=== PATIENT | male | born 1965 | race Caucasian/White ===

== ENCOUNTER 2017-02-09 07:26 | Emergency (ER) | payer MEDICARE, MEDICAID ==
[~2017-02-09] VITALS: Ht 182.9 cm; Wt 104.8 kg
[~2017-02-09 07:26] MED LIST: DIAZ2TAB PO; GABA-341 PO; OXYC20TA55 PO; PAM25C PO
[2017-02-09] MEDS ORDERED: CLIN-79 PO (08:03)
[2017-02-09] MEDS ORDERED: HYDR-3965 PO (08:03)
[2017-02-09 08:10] VITALS: BP 157/90
== END 2017-02-09 08:11 | disposition home or self-care (01) ==
LOC: ER 07:27
DX: K08.89 Other specified disorders of teeth and supporting structures (principal); J45.909 Unspecified asthma, uncomplicated; G89.29 Other chronic pain; F17.200 Nicotine dependence, unspecified, uncomplicated; Z88.0 Allergy status to penicillin; Z88.2 Allergy status to sulfonamides
CPT/HCPCS: 99283

== ENCOUNTER 2017-02-23 16:56 | Emergency (ER) | payer MEDICARE, MEDICAID ==
[~2017-02-23] VITALS: Ht 182.9 cm; Wt 106.2 kg
[~2017-02-23 16:56] MED LIST changes: +CLIN-79 PO; +HYDR-3965 PO
[2017-02-23 17:14] VITALS: BP 124/76
[2017-02-23] MEDS ORDERED: ketorolac trometh inj. 60 MG/2 ML VIAL IM ONE (17:45)
[2017-02-23] MEDS ORDERED: IBUP-1984 PO (17:57)
== END 2017-02-23 18:24 | disposition home or self-care (01) ==
LOC: ER 16:57
DX: S70.02XA Contusion of left hip, initial encounter (principal); M54.32 Sciatica, left side; M54.31 Sciatica, right side; M21.372 Foot drop, left foot; G89.29 Other chronic pain; J45.909 Unspecified asthma, uncomplicated; Z98.890 Other specified postprocedural states; Z79.899 Other long term (current) drug therapy; Z88.2 Allergy status to sulfonamides; Z88.0 Allergy status to penicillin; W10.8XXA Fall (on) (from) other stairs and steps, initial encounter; Y93.89 Activity, other specified; Y92.89 Other specified places as the place of occurrence of the external cause; Y99.8 Other external cause status
CPT/HCPCS: 73502; 96372; 99284; J1885

== ENCOUNTER 2017-02-27 12:11 | Emergency (ER) | payer MEDICARE, MEDICAID ==
[~2017-02-27] VITALS: Ht 182.9 cm; Wt 104.5 kg
[~2017-02-27 12:11] MED LIST changes: +IBUP-1984 PO
[2017-02-27 12:14] VITALS: BP 142/97
[2017-02-27] MEDS ORDERED: predniSONE 20 mg tablet PO ONE (13:00)
[2017-02-27] MEDS ORDERED: ketorolac trometh inj. 60 MG/2 ML VIAL IM ONE (13:00)
[2017-02-27] MEDS ORDERED: PRED20TA PO (13:28)
[2017-02-27] MEDS ORDERED: IBUP-1984 PO (13:31)
== END 2017-02-27 14:09 | disposition home or self-care (01) ==
LOC: ER 12:12
DX: M54.32 Sciatica, left side (principal); J45.909 Unspecified asthma, uncomplicated; G89.29 Other chronic pain; Z88.0 Allergy status to penicillin; Z88.2 Allergy status to sulfonamides
CPT/HCPCS: 73502; 96372; 99284; J1885; J7512

== ENCOUNTER 2017-06-22 10:07 | Emergency (ER) | payer MEDICARE, MEDICAID ==
[~2017-06-22] VITALS: Ht 180.3 cm; Wt 109.1 kg
[~2017-06-22 10:07] MED LIST changes: -HYDR-3965 PO; -IBUP-1984 PO
[2017-06-22] MEDS ORDERED: HYDROcodone/acetaminophen 10/325mg tab PO ONE (10:20)
[2017-06-22] MEDS ORDERED: gabapentin 300mg capsule PO ONE (11:40)
[2017-06-22] MEDS ORDERED: ketorolac trometh inj. 60 MG/2 ML VIAL IM ONE (11:40)
[2017-06-22 11:45] VITALS: BP 110/61
[2017-06-22] MEDS ORDERED: GABA-532 PO (12:31)
[2017-06-22] MEDS ORDERED: TRAM50TA2 PO (12:31)
== END 2017-06-22 13:21 | disposition home or self-care (01) ==
LOC: ER 10:08
DX: G89.29 Other chronic pain (principal); M54.5 Low back pain; J45.909 Unspecified asthma, uncomplicated; Z98.890 Other specified postprocedural states; Z56.0 Unemployment, unspecified; Z88.0 Allergy status to penicillin; Z88.2 Allergy status to sulfonamides; Z79.899 Other long term (current) drug therapy
CPT/HCPCS: 72110; 96372; 99284; J1885

== ENCOUNTER 2017-08-18 12:24 | Emergency (ER) | payer MEDICARE, MEDICAID ==
[~2017-08-18] VITALS: Ht 182.9 cm; Wt 110.0 kg
[~2017-08-18 12:24] MED LIST changes: -CLIN-79 PO; +CLIN150C8 PO; +GABA-532 PO
[2017-08-18 12:26] VITALS: BP 118/74
== END 2017-08-18 13:45 | disposition home or self-care (01) ==
LOC: ER 12:25
DX: R60.0 Localized edema (principal); J45.909 Unspecified asthma, uncomplicated; G89.29 Other chronic pain; Z86.19 Personal history of other infectious and parasitic diseases; Z98.890 Other specified postprocedural states; Z56.0 Unemployment, unspecified; Z88.2 Allergy status to sulfonamides; Z88.8 Allergy status to other drugs, medicaments and biological substances; Z79.899 Other long term (current) drug therapy
CPT/HCPCS: 99281